=== PATIENT | female | born 2005 | race African-American/Black ===

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

== ENCOUNTER → 2024-07-17 11:39 | Outpatient (CLI) | payer OTHER, SELFPAY ==
[2024-07-17 12:16] LABS: Hematocrit 36.9 % (36-46); Hemoglobin 12.3 g/dL (12.0-16.0); Mean Corpuscular HGB Conc 33.4 % (30-36); Mean Corpuscular Hemoglobin 28.4 PG (26-34); Platelet Count 265 X10^3/uL (150-400); Red Blood Cell Count 4.34 X10^6/uL (4.0-5.2); Red Cell Distribution Width 12.8 % (11.6-14.8); White Blood Cell Count 6.4 X10^3/uL (4.5-11.0)
[2024-07-17 12:21] LABS: Anisocytosis 1+; Neutrophils Absolute Manual 3392 /uL (3000-5900); Poikilocytosis 1+; Total Cells Counted 100
[2024-07-17 12:41] LABS: Alanine Aminotransferase 19 IU/L (<35); Albumin 4.5 g/dL (3.5-5.0); Albumin Globulin Ratio 1.5 (1.0-2.8); Alkaline Phosphatase 55 U/L (38-126); Aspartate Aminotransferase 25 IU/L (14-36); BUN Creatinine Ratio 17.7 (6-22); Bilirubin Total 0.6 mg/dL (0.2-1.3); Blood Urea Nitrogen 11 mg/dL (7-17); Calcium 9.8 mg/dL (8.4-10.2); Carbon Dioxide 24 mmol/L (22-32); Chloride 105 mmol/L (98-107); Cholesterol 213 mg/dL (140-199); Estimated Glomerular Filt Rate > 60 mL/min (>60); Glucose 88 mg/dL (70-99); HDL Cholesterol 74 mg/dL (40-60); HEMOLYSIS < 15 (0-50); LDL Cholesterol Calculated 127 mg/dL (<100); Potassium 4.4 mmol/L (3.4-5.1); Sodium 136 mmol/L (137-145); Total Protein 7.5 g/dL (6.3-8.2); Triglycerides 61 mg/dL (35-150)
== END ==
PROVIDERS: Family Provider Family Medicine; PCP Pediatrics; Referring Provider Pediatrics; Visit Provider Pediatrics
DX: Z00.00 Encounter for general adult medical examination without abnormal findings (principal)
CPT/HCPCS: 36415; 80053; 80061; 85025